=== PATIENT | female | born 1995 ===

== ENCOUNTER 2017-05-17 00:31 | Emergency (ER) | payer MEDICAID ==
[2017-05-17 00:41] VITALS: BP 134/91
[2017-05-17 04:15] LABS: Bilirubin,Urine NEG (Negative); Blood,Urine NEG (Negative); Ketones,Urine NEG (Negative); Leukocyte Esterase,Urine NEG (Negative); Mucus,Urine FEW /HPF; Nitrite,Urine NEG (Negative); Protein,Urine <15 mg/dL mg/dL (Negative); Urobilinogen,Urine < 2.0 mg/dL (<2.0)
--- NOTE | 2017-05-17 05:54 | Emergency Department Report ---
ED Female HPI - General Chief complaint: Urogenital-Female Stated complaint: STD Time Seen by Provider: 05/17/17 05:27 Source: patient Mode of arrival: Ambulatory Limitations: No Limitations - History of Present Illness Initial comments: 21-year-old female past medical history none presents with complaint of white thick vaginal discharge and itching. Denies fevers chills or abdominal pain. Denies increased urinary frequency or dysuria. Last menstrual period 04/16/17. Denies any hematuria. Awake alert and oriented 3. Currently sexually active. Concerned she may have been exposed to chlamydia or gonorrhea. Complaining of some vaginal itching MD Complaint: vaginal discharge Onset/Timin -: week(s) Location: labia Quality: burning Consistency: constant Improves with: none Are you Now?: No Associated Symptoms: vaginal discharge - Related Data Sexually active: Yes Previous Rx's Medication Instructions Recorded Last Taken Type Ibuprofen [Motrin 800 MG tab] 800 mg PO Q8HR PRN #20 tablet 02/03/16 Unknown Rx traMADol [Ultram 50 MG tab] 50 mg PO Q6HR PRN #10 tablet 02/03/16 Unknown Rx Fluconazole [Diflucan TAB] 150 mg PO ONCE #1 tablet 05/17/17 Unknown Rx metroNIDAZOLE [Metronidazole] 500 mg PO BID #14 tablet 05/17/17 Unknown Rx Allergies Allergy/AdvReac Type Severity Reaction Status Date / Time No Known Allergies Allergy Verified 02/03/16 08:12 ED Review of Systems ROS: Stated complaint: STD Other details as noted in HPI Constitutional: denies: chills, fever Eyes: denies: eye pain, eye discharge, vision change ENT: denies: ear pain, throat pain Respiratory: denies: cough, shortness of breath, wheezing Cardiovascular: denies: chest pain, palpitations Endocrine: no symptoms reported Gastrointestinal: denies: abdominal pain, nausea, diarrhea Genitourinary: other (vaginal itching). denies: urgency, dysuria, discharge Musculoskeletal: denies: back pain, joint swelling, arthralgia Skin: denies: rash, lesions Neurological: denies: headache, weakness, paresthesias Psychiatric: denies: anxiety, depression Hematological/Lymphatic: denies: easy bleeding, easy bruising ED Past Medical Hx - Past Medical History Previous Medical History?: No - Surgical History Past Surgical History?: No - Social History Smoking Status: Never Smoker - Medications Home Medications: Home Medications Medication Instructions Recorded Confirmed Last Taken Type Ibuprofen [Motrin 800 MG tab] 800 mg PO Q8HR PRN #20 tablet 02/03/16 Unknown Rx traMADol [Ultram 50 MG tab] 50 mg PO Q6HR PRN #10 tablet 02/03/16 Unknown Rx Fluconazole [Diflucan TAB] 150 mg PO ONCE #1 tablet 05/17/17 Unknown Rx metroNIDAZOLE [Metronidazole] 500 mg PO BID #14 tablet 05/17/17 Unknown Rx ED Physical Exam - General Limitations: No Limitations General appearance: alert, in no apparent distress - Head Head exam: Present: atraumatic, normocephalic - Eye Eye exam: Present: normal appearance, PERRL, EOMI - ENT ENT exam: Present: mucous membranes moist - Neck Neck exam: Present: normal inspection - Respiratory Respiratory exam: Present: normal lung sounds bilaterally. Absent: respiratory distress - Cardiovascular Cardiovascular Exam: Present: regular rate, normal rhythm. Absent: systolic murmur, diastolic murmur, rubs, gallop - GI/Abdominal GI/Abdominal exam: Present: soft, normal bowel sounds - External exam: Present: normal external exam Speculum exam: Present: vaginal discharge (thick white vaginal discharge) Bi-manual exam: Present: normal bi-manual exam - Extremities Exam Extremities exam: Present: normal inspection - Back Exam Back exam: Present: normal inspection - Neurological Exam Neurological exam: Present: alert, oriented X3, CN II-XII intact, normal gait - Psychiatric Psychiatric exam: Present: normal affect, normal mood - Skin Skin exam: Present: warm, dry, intact, normal color. Absent: rash ED Course Vital Signs 05/17/17 05/17/17 00:34 02:24 Temperature 98.2 F 98.2 F Pulse Rate 78 77 Respiratory 16 16 Rate Blood Pressure 134/91 134/91 O2 Sat by Pulse 99 99 Oximetry ED Medical Decision Making - Medical Decision Making A/P: Possible exposure to STD, vaginitis 1-empiric treatment with azithromycin and ceftriaxone for possible cervicitis/GC , culture sent 2-empiric treatment with metronidazole 3-follow-up with [facility] Critical care attestation.: If time is entered above; I have spent that time in minutes in the direct care of this critically ill patient, excluding procedure time. ED Disposition Clinical Impression: Concern about STD in female without diagnosis Vaginitis Qualifiers: Chronicity: acute Qualified Code(s): N76.0 - Acute vaginitis Disposition: TO HOME OR SELFCARE Is pt being admited?: No Does the pt Need Aspirin: No Condition: Stable Instructions: Sexually Transmitted Diseases (ED), Vaginitis (ED), Bacterial Vaginosis (ED) Prescriptions: Fluconazole [Diflucan TAB] 150 mg PO ONCE #1 tablet metroNIDAZOLE [Metronidazole] 500 mg PO BID #14 tablet Referrals: [facility] [Provider Group] - 3-5 Days [facility] [Provider Group] - 3-5 Days Forms: Work/School Release Form(ED) Time of Disposition: 06:01
[2017-05-17] MEDS ORDERED: ZITHROMAX PO ONE (06:04)
[2017-05-17] MEDS ORDERED: XYLOCAINE 1% MPF 5 mL INFILTRATI ONE (06:05)
[2017-05-17] MEDS ORDERED: ROCEPHIN IM ONE (06:05)
[2017-05-17] MEDS ORDERED: ZOFRAN ODT PO ONE (06:55)
[2017-05-17] MEDS ORDERED: ZOFRAN ODT ONE (06:57)
== END 2017-05-17 06:56 | disposition home or self-care (01) ==
LOC: ED 00:31
DX: N76.0 Acute vaginitis (principal)
CPT/HCPCS: 81001; 81025; 87210; 87591; 96372; 99284; J0696; Q0162

== ENCOUNTER 2017-09-24 00:03 | Emergency (ER) | payer MEDICAID ==
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
[2017-09-24 02:18] LABS: Basophils # (Auto) 0.1 K/mm3 (0.0-0.1); Basophils % (Auto) 0.8 % (0.0-1.8); Eosinophils # (Auto) 0.1 K/mm3 (0.0-0.4); Eosinophils % (Auto) 0.7 % (0.0-4.3); Hemoglobin 11.4 gm/dl (10.1-14.3); Lymphocytes # (Auto) 3.2 K/mm3 (1.2-5.4); Lymphocytes % (Auto) 29.3 % (13.4-35.0); Mean Corpuscular HGB Conc 33 % (30-34); Mean Corpuscular Volume 75 fl (79-97); Monocytes # (Auto) 0.7 K/mm3 (0.0-0.8); Monocytes % (Auto) 6.3 % (0.0-7.3); Platelet Count 206 K/mm3 (140-440); Red Blood Count 4.64 M/mm3 (3.65-5.03); Red Cell Distribution Width 18.3 % (13.2-15.2)
[2017-09-24 02:22] LABS: Mean Corpuscular Hemoglobin 25 pg (28-32)
[2017-09-24 02:35] LABS: Bilirubin,Urine NEG (Negative); Blood,Urine NEG (Negative); Color,Urine Amber (Yellow); Mucus,Urine 3+ /HPF
[2017-09-24 02:42] LABS: Alanine Aminotransferase 11 units/L (7-56); Albumin 4.6 g/dL (3.9-5); BUN/Creatinine Ratio 13; Blood Urea Nitrogen 9 mg/dL (7-17); Calcium 9.1 mg/dL (8.4-10.2); Hemolysis Index 1
[2017-09-24 03:24] LABS: Amphetamine Screen,Urine PRESUMPTIVE POSITIVE; Benzodiazepines Screen,Urine PRESUMPTIVE POSITIVE; Cocaine Screen,Urine PRESUMPTIVE POSITIVE; Methadone Screen,Urine PRESUMPTIVE NEGATIVE; Opiate Screen,Urine PRESUMPTIVE NEGATIVE
[2017-09-24 03:59] LABS: Cannabinoid Screen,Urine PRESUMPTIVE POSITIVE
--- NOTE | 2017-09-24 04:05 | Cat Scan Report ---
FINAL REPORT EXAM: CT Head w/o Contrast CLINICAL INDICATIONS: AMS FINDINGS: Unenhanced CT of the brain was performed and demonstrates no acute intracranial hemorrhage, extra-axial fluid collection, midline shift or mass effect. The ventricles and basal cisterns are not effaced. No suspect focal brain lesion is identified. The mastoid air cells and middle ears appear clear. There is no evidence of acute sinusitis. IMPRESSION: NO ACUTE INTRACRANIAL HEMORRHAGE
--- NOTE | 2017-09-24 10:42 | Emergency Department Report ---
Blank Doc - Documentation Documentation: Patient is 21 years old female signed out to me by my colleague Dr. Taylor, patient is alert and oriented 3 that she is still combative with some underlying anxiety. We discussed her case with her mother she is told us that she has been thinking about killing herself. Patient is put on 1013. Mental health travel attendants at bedside for placement.
--- NOTE | 2017-09-25 14:57 | Consultation ---
History of Present Illness - Reason for Consult Consult date: 09/25/17 Reason for consult: Mental Health Evaluation Requesting physician: JENNIFER ERICKSON - Chief Complaint Chief complaint: "I am ready to go" - History of Present Psychiatric Illness 21-year-old female with presenting to the hospital with AVH's and combative behavior. Today the patient is calm and cooperative during the assessment. She stated that she was getting "high" on drugs prior to her admission to the hospital. She stated that she remember smoking marijuana and possibly doing other drugs for a day. She denies having a mental health dx when asked. She stated, "I am good." She was lucid during the interview and not disorganized. She denies SI/HI's and AVH's. She denies erratic sleep and a poor appetite. She denies alcohol consumption (etoh). The patient stated that she buys benzos on the "streets." Medications and Allergies Allergies Allergy/AdvReac Type Severity Reaction Status Date / Time No Known Allergies Allergy Verified 02/03/16 08:12 Home Medications Medication Instructions Recorded Confirmed Last Taken Type Ibuprofen [Motrin 800 MG tab] 800 mg PO Q8HR PRN #20 tablet 02/03/16 Unknown Rx traMADol [Ultram 50 MG tab] 50 mg PO Q6HR PRN #10 tablet 02/03/16 Unknown Rx Fluconazole [Diflucan TAB] 150 mg PO ONCE #1 tablet 05/17/17 Unknown Rx metroNIDAZOLE [Metronidazole] 500 mg PO BID #14 tablet 05/17/17 Unknown Rx Past psychiatric history - Past Medical History Past Medical History: No medical history Past Surgical History: No surgical history - past Psychiatric treatment and history psychiatric treatment history: Denies a psy hx and a fam psy hx. - Social History Social history: lives with family Mental Status Exam - Vital signs Last Vital Signs Temp 98.0 F 09/25/17 09:05 Pulse 64 09/25/17 09:05 Resp 18 09/25/17 09:05 BP 102/63 09/25/17 09:05 Pulse Ox 100 09/25/17 09:05 - Exam Narrative exam: MSE: Appearance: calm, cooperative Behavior: regular eye contact Speech: regular rate with tone Mood: "okay" Affect: congruent to mood Thought Process: circumstantial Thought Content: denies SI/HI's and AVH's Motor Activity: ambulatory Cognition: A/O x 3 Insight: fair Judgment: fair Results Result Diagrams: 09/24/17 02:04 09/24/17 02:04 All other labs normal. Assessment and Plan Assessment and plan: Impression: Unspecified Psychosis on admission. Cannabis Use DO. Substance Use DO (amphetamines, cocaine). Today the patient is calm and cooperative during the assessment. The patient is positive for benzos. DDx: R/O Substance Induced Psychosis Recommendation/Plan: Continue 1013 and gather collateral information to help determine proper dispo. Called the patient's grandmother (Keri) at to get collateral, no answer. Will reassess and attempt to gather collateral information in 24 hours.
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
--- NOTE | 2017-09-27 10:39 | Progress Note ---
Subjective - Reason for Consult Consult date: 09/27/17 Reason for consult: Psychiatry Follow-up - Chief Complaint Chief complaint: "No one understand" Patient is a 21-year-old female who presents to the hospital with AVH's and combative behavior. Today the patient is calm and cooperative during the assessment. She stated that she has "spirits and demons" inside of her. She stated that these "things" has been inside of her since last Sunday. She stated that no one understand what she is going through. Per collateral information from Halie Ryan her grandmother at [phone] she stated that the patient arrived at her home several days ago presenting with bizarre behavior. She stated that there's a fam hx of Bipolar DO. The patient denies SI/HI's and AVH' s. The patient agrees to take medication. Mental Status Exam - Vital signs Last Vital Signs Temp 97.9 F 09/26/17 16:06 Pulse 71 09/26/17 16:06 Resp 18 09/26/17 16:06 BP 105/68 09/26/17 16:06 Pulse Ox 99 09/26/17 16:06 - Exam Narrative exam: MSE: Appearance: calm, cooperative Behavior: regular eye contact Speech: regular rate with tone Mood: "okay" Affect: congruent to mood Thought Process: circumstantial Thought Content: denies SI/HI's and AVH's, delusional, hyper muslim Motor Activity: ambulatory Cognition: A/O x 3 Insight: variable Judgment: fair Assessment and Plan Impression: Unspecified Psychosis. Cannabis Use DO. Substance Use DO ( amphetamines, cocaine). Today the patient is calm and cooperative , but delusional during the assessment. The patient is positive for benzos. DDx: R/O Schizophrenia, R/O Bipolar DO, R/O Substance Induced Psychosis Recommendation/Plan: Continue 1013 with placement to inpatient psy services. Start Geodon 20 mg PO BID for psychosis. Discussed possible metabolic side effects of Geodon with patient.
[2017-09-27] MEDS: GEODON PO SCH ×2 (13:25→22:54)
[2017-09-27] MEDS ORDERED: TYLENOL ONE (22:47)
[2017-09-27] MEDS ORDERED: TYLENOL PO ONE (22:53)
[2017-09-28] MEDS: GEODON PO SCH ×2 (10:49→22:15)
--- NOTE | 2017-09-28 12:44 | Progress Note ---
Subjective - Reason for Consult Consult date: 09/28/17 Reason for consult: Psychiatry Follow-up - Chief Complaint Chief complaint: "Hello there" Patient is a 21-year-old female who presents to the hospital with AVH's and combative behavior. Today the patient is calm and cooperative during the assessment. She stated that the demons are not inside of her anymore. She stated , "I hope they don't return." She was asked to talk about these demons, but she would not elaborate. She denies SI/HI's and AVH's. She denies any side effects of her medication. Mental Status Exam - Vital signs Last Vital Signs Temp 97.8 F 09/28/17 10:37 Pulse 72 09/28/17 10:37 Resp 18 09/28/17 10:37 BP 91/43 09/28/17 10:37 Pulse Ox 99 09/28/17 10:37 - Exam Narrative exam: MSE: Appearance: calm, cooperative Behavior: regular eye contact Speech: regular rate with tone Mood: "well" Affect: congruent to mood Thought Process: circumstantial Thought Content: denies SI/HI's and AVH's, delusional Motor Activity: ambulatory Cognition: A/O x 3 Insight: variable Judgment: fair Assessment and Plan Impression: Unspecified Psychosis. Cannabis Use DO. Substance Use DO ( amphetamines, cocaine). Today the patient is calm and cooperative during the assessment. The patient is positive for benzos. DDx: R/O Schizophrenia, R/O Bipolar DO, R/O Substance Induced Psychosis Recommendation/Plan: Continue 1013 with placement to inpatient psy services. Continue Geodon 20 mg PO BID for psychosis. Discussed possible metabolic side effects of Geodon with patient.
[2017-09-28] MEDS ORDERED: GEODON ONE (20:34)
[2017-09-29] MEDS: GEODON PO SCH (10:54)
[2017-09-29 15:08] VITALS: BP 102/61
== END 2017-09-29 16:36 | disposition other institution (70) ==
LOC: ED 00:03 → EEVIPCON 00:03 → ED 09-29 16:36
DX: R41.82 Altered mental status, unspecified (principal); F32.9 Major depressive disorder, single episode, unspecified; F12.10 Cannabis abuse, uncomplicated; F14.10 Cocaine abuse, uncomplicated; F13.10 Sedative, hypnotic or anxiolytic abuse, uncomplicated; F15.10 Other stimulant abuse, uncomplicated; Z79.899 Other long term (current) drug therapy
CPT/HCPCS: 36415; 70450; 80053; 80307; 81001; 84443; 84703; 85025; 99285; G0480; 80320

== ENCOUNTER 2020-03-22 21:46 | Emergency (ER) | payer MEDICAID ==
[2020-03-22 22:25] LABS: Basophils # (Auto) 0.1 K/mm3 (0.0-0.1); Basophils % (Auto) 0.6 % (0.0-1.8); Eosinophils # (Auto) 0.1 K/mm3 (0.0-0.4); Eosinophils % (Auto) 0.5 % (0.0-4.3); Hematocrit 34.4 % (30.3-42.9); Hemoglobin 11.8 gm/dl (10.1-14.3); Lymphocytes # (Auto) 4.1 K/mm3 (1.2-5.4); Mean Corpuscular HGB Conc 34 % (30-34); Mean Corpuscular Volume 77 fl (79-97); Monocytes # (Auto) 0.7 K/mm3 (0.0-0.8); Monocytes % (Auto) 6.5 % (0.0-7.3); Platelet Count 311 K/mm3 (140-440); Red Blood Count 4.49 M/mm3 (3.65-5.03); Red Cell Distribution Width 14.5 % (13.2-15.2)
[2020-03-22 22:32] LABS: BUN/Creatinine Ratio 9; Blood Urea Nitrogen 6 mg/dL (7-17); Hemolysis Index 4
[2020-03-22] MEDS ORDERED: POTASSIUM CHLORIDE ER 20 MEQ TAB PO ONE (23:21)
--- NOTE | 2020-03-22 23:22 | Emergency Department Report ---
HPI - [facility] HPI: Room 13 The patient is a 24-year-old female present with a chief complaint of bizarre behavior. Patient was reportedly sent from home after being found walking around continuously singing. When asked what made her come to the emergency department patient states "Cayden." When asked why Asaf want her to come to the emergency department the patient states she does not know. When asked how she is feeling the patient replies "Cayden." Patient denies suicidal homicidal ideation. Patient denies visual or auditory hallucinations <CAROLYN MICHEL - Last Filed: 03/22/20 23:19> <JENNIFER ERICKSON - Last Filed: 03/24/20 08:36> <SHANTA ORTIZ - Last Filed: 03/26/20 13:40> - General Chief Complaint: Psych Time Seen by Provider: 03/22/20 23:03 ED Past Medical Hx - Past Medical History Hx Psychiatric Treatment: (Bipolar, Schziophrenia) - Surgical History Past Surgical History?: No - Family History Family history: no significant - Social History Smoking Status: Never Smoker Substance Use Type: None (Denies illicit drug use) <CAROLYN MICHEL - Last Filed: 03/22/20 23:19> <JENNIFER ERICKSON - Last Filed: 03/24/20 08:36> <SHANTA ORTIZ - Last Filed: 03/26/20 13:40> - Medications Home Medications: Home Medications Medication Instructions Recorded Confirmed Last Taken Type OLANZapine [Zyprexa] 15 mg PO QPM #30 tab 03/26/20 Unknown Rx Valproic Acid [Depakene] 500 mg PO BID #60 capsule 03/26/20 Unknown Rx ED Review of Systems ROS: Stated complaint: MH EVALUATION Other details as noted in HPI Constitutional: no symptoms reported Respiratory: no symptoms reported Endocrine: no symptoms reported Psychiatric: denies: auditory hallucinations, visual hallucinations, homicidal thoughts, suicidal thoughts <CAROLYN MICHEL - Last Filed: 03/22/20 23:19> ROS: Stated complaint: MH EVALUATION Other details as noted in HPI <JENNIFER ERICKSON - Last Filed: 03/24/20 08:36> ROS: Stated complaint: MH EVALUATION Other details as noted in HPI <SHANTA ORTIZ - Last Filed: 03/26/20 13:40> Physical Exam - Physical Exam Vital Signs: Vital Signs 03/22/20 21:49 Temperature 98 F Pulse Rate 108 H Respiratory 20 Rate Blood Pressure 135/73 O2 Sat by Pulse 100 Oximetry Physical Exam: GENERAL: The patient is well-developed well-nourished female standing in room singing not appearing to be in acute distress. [] HEENT: Normocephalic. Atraumatic. Extraocular motions are intact. Patient has moist mucous membranes. NECK: Supple. Trachea midline CHEST/LUNGS: Clear to auscultation. There is no respiratory distress noted. HEART/CARDIOVASCULAR: Regular. There is tachycardia. There is no gallop rub or murmur. ABDOMEN: Abdomen is soft, nontender. Patient has normal bowel sounds. There is no abdominal distention. SKIN: There is no rash. There is no edema. There is no diaphoresis. NEURO: The patient is awake, alert, and oriented. The patient is cooperative. The patient has no focal neurologic deficits. The patient has normal speech MUSCULOSKELETAL: There is no evidence of acute injury. <CAROLYN MICHEL - Last Filed: 03/22/20 23:19> - Physical Exam Vital Signs: Vital Signs 03/22/20 03/23/20 03/23/20 21:49 02:07 07:41 Temperature 98 F 98.0 F 97.7 F Pulse Rate 108 H 77 93 H Respiratory 20 16 20 Rate Blood Pressure 135/73 Blood Pressure 109/80 148/83 [Left] O2 Sat by Pulse 100 97 99 Oximetry 03/23/20 03/23/20 03/23/20 09:04 14:36 19:55 Temperature 97.8 F 97.9 F Pulse Rate 68 89 Respiratory 18 18 16 Rate Blood Pressure Blood Pressure 99/51 114/75 [Left] O2 Sat by Pulse 99 99 98 Oximetry 03/24/20 03/24/20 02:11 08:00 Temperature 97.7 F Pulse Rate 88 Respiratory 18 18 Rate Blood Pressure Blood Pressure 96/51 [Left] O2 Sat by Pulse 97 97 Oximetry <JENNIFER ERICKSON - Last Filed: 03/24/20 08:36> - Physical Exam Vital Signs: Vital Signs 03/22/20 03/22/20 03/23/20 21:49 21:53 02:07 Temperature 98 F 98.0 F 98.0 F Pulse Rate 108 H 86 77 Respiratory 20 20 16 Rate Blood Pressure 135/73 135/73 Blood Pressure 109/80 [Left] O2 Sat by Pulse 100 96 97 Oximetry 03/23/20 03/23/20 03/23/20 07:41 09:04 14:36 Temperature 97.7 F 97.8 F Pulse Rate 93 H 68 Respiratory 20 18 18 Rate Blood Pressure Blood Pressure 148/83 99/51 [Left] O2 Sat by Pulse 99 99 99 Oximetry 03/23/20 03/24/20 03/24/20 19:55 02:11 08:00 Temperature 97.9 F 97.7 F Pulse Rate 89 88 Respiratory 16 18 18 Rate Blood Pressure Blood Pressure 114/75 96/51 [Left] O2 Sat by Pulse 98 97 97 Oximetry 03/24/20 03/24/20 03/25/20 08:46 19:13 04:30 Temperature 97.8 F 98.3 F 97.7 F Pulse Rate 105 H 82 93 H Respiratory 18 16 18 Rate Blood Pressure 116/77 116/83 Blood Pressure 122/80 [Left] O2 Sat by Pulse 99 99 97 Oximetry 03/25/20 03/25/20 03/26/20 08:02 19:28 01:43 Temperature 97.7 F 97.8 F 98.0 F Pulse Rate 98 H 115 H Respiratory 20 18 18 Rate Blood Pressure 109/80 106/62 Blood Pressure 114/62 [Left] O2 Sat by Pulse 99 95 Oximetry 03/26/20 03/26/20 01:48 08:02 Temperature 97.9 F Pulse Rate 92 H 95 H Respiratory 16 Rate Blood Pressure 110/75 Blood Pressure [Left] O2 Sat by Pulse 99 98 Oximetry <SHANTA ORTIZ - Last Filed: 03/26/20 13:40> ED Course Vital Signs 03/22/20 21:49 Temperature 98 F Pulse Rate 108 H Respiratory 20 Rate Blood Pressure 135/73 O2 Sat by Pulse 100 Oximetry <CAROLYN MICHEL - Last Filed: 03/22/20 23:19> Vital Signs 03/22/20 03/23/20 03/23/20 21:49 02:07 07:41 Temperature 98 F 98.0 F 97.7 F Pulse Rate 108 H 77 93 H Respiratory 20 16 20 Rate Blood Pressure 135/73 Blood Pressure 109/80 148/83 [Left] O2 Sat by Pulse 100 97 99 Oximetry 03/23/20 03/23/20 03/23/20 09:04 14:36 19:55 Temperature 97.8 F 97.9 F Pulse Rate 68 89 Respiratory 18 18 16 Rate Blood Pressure Blood Pressure 99/51 114/75 [Left] O2 Sat by Pulse 99 99 98 Oximetry 03/24/20 03/24/20 02:11 08:00 Temperature 97.7 F Pulse Rate 88 Respiratory 18 18 Rate Blood Pressure Blood Pressure 96/51 [Left] O2 Sat by Pulse 97 97 Oximetry - Reevaluation(s) Reevaluation #1: 03/24/20 08:36 Patient became agitated. Screaming out "Cayden". Due to uncontrollable behavior, chemical restraint with IM Geodon was administered. <JENNIFER ERICKSON - Last Filed: 03/24/20 08:36> Vital Signs 03/22/20 03/22/20 03/23/20 21:49 21:53 02:07 Temperature 98 F 98.0 F 98.0 F Pulse Rate 108 H 86 77 Respiratory 20 20 16 Rate Blood Pressure 135/73 135/73 Blood Pressure 109/80 [Left] O2 Sat by Pulse 100 96 97 Oximetry 03/23/20 03/23/20 03/23/20 07:41 09:04 14:36 Temperature 97.7 F 97.8 F Pulse Rate 93 H 68 Respiratory 20 18 18 Rate Blood Pressure Blood Pressure 148/83 99/51 [Left] O2 Sat by Pulse 99 99 99 Oximetry 03/23/20 03/24/20 03/24/20 19:55 02:11 08:00 Temperature 97.9 F 97.7 F Pulse Rate 89 88 Respiratory 16 18 18 Rate Blood Pressure Blood Pressure 114/75 96/51 [Left] O2 Sat by Pulse 98 97 97 Oximetry 03/24/20 03/24/20 03/25/20 08:46 19:13 04:30 Temperature 97.8 F 98.3 F 97.7 F Pulse Rate 105 H 82 93 H Respiratory 18 16 18 Rate Blood Pressure 116/77 116/83 Blood Pressure 122/80 [Left] O2 Sat by Pulse 99 99 97 Oximetry 03/25/20 03/25/20 03/26/20 08:02 19:28 01:43 Temperature 97.7 F 97.8 F 98.0 F Pulse Rate 98 H 115 H Respiratory 20 18 18 Rate Blood Pressure 109/80 106/62 Blood Pressure 114/62 [Left] O2 Sat by Pulse 99 95 Oximetry 03/26/20 03/26/20 01:48 08:02 Temperature 97.9 F Pulse Rate 92 H 95 H Respiratory 16 Rate Blood Pressure 110/75 Blood Pressure [Left] O2 Sat by Pulse 99 98 Oximetry - Reevaluation(s) Reevaluation #2: 03/26/20 13:39 Patient seen and evaluated by Psychiatry. Symptoms have improved. Patient is stable and 1013 has been rescinded. She will be discharged at this time with outpatient follow-up. <SHANTA ORTIZ - Last Filed: 03/26/20 13:40> ED Medical Decision Making - Lab Data Result diagrams: 03/22/20 21:56 03/22/20 21:56 - Differential Diagnosis Bipolar disorder <CAROLYN MICHEL - Last Filed: 03/22/20 23:19> - Lab Data Result diagrams: 03/22/20 21:56 03/22/20 21:56 <JENNIFER ERICKSON - Last Filed: 03/24/20 08:36> - Lab Data Result diagrams: 03/22/20 21:56 03/26/20 05:58 <SHANTA ORTIZ - Last Filed: 03/26/20 13:40> Critical care attestation.: If time is entered above; I have spent that time in minutes in the direct care of this critically ill patient, excluding procedure time. <CAROLYN MICHEL - Last Filed: 03/22/20 23:19> Critical care attestation.: If time is entered above; I have spent that time in minutes in the direct care of this critically ill patient, excluding procedure time. <JENNIFER ERICKSON - Last Filed: 03/24/20 08:36> Critical care attestation.: If time is entered above; I have spent that time in minutes in the direct care of this critically ill patient, excluding procedure time. <SHANTA ORTIZ - Last Filed: 03/26/20 13:40> ED Disposition <CAROLYN MICHEL - Last Filed: 03/22/20 23:19> <JENNIFER ERICKSON - Last Filed: 03/24/20 08:36> Is pt being admited?: No <SHANTA ORTIZ - Last Filed: 03/26/20 13:40> Clinical Impression: Schizoaffective disorder, Substance-induced psychotic disorder Disposition: DC-01 TO HOME OR SELFCARE Condition: Stable Instructions: Cannabis Abuse (ED), Schizoaffective Disorder (ED) Additional Instructions: OUTPATIENT MENTAL HEALTH RESOURCES [facility], [facility] Hal Holt MD: [address] [facility] [address] [place] [address] [place] [address] [facility]: [employer] [address] [place] [address] [place] [address] [phone] [facility]: [facility]: [address] [facility] [address] [facility] [place] [address] [facility] [address] [facility]: Danny Hewitt MD: [address] [facility] [address] [facility] [id number] [facility]: [address] [place], [place] [id number] [phone] [place] CRISIS AND ACCESS LINE: Prescriptions: Valproic Acid [Depakene] 500 mg PO BID #60 capsule OLANZapine [Zyprexa] 15 mg PO QPM #30 tab Referrals: PRIMARY CARE, [Primary Care Provider] - 3-5 Days
[2020-03-22 23:36] LABS: Bacteria,Urine 2+ /HPF (Negative); Bilirubin,Urine NEG (Negative); Blood,Urine NEG (Negative); Color,Urine Yellow (Yellow); Mucus,Urine 1+ /HPF
[2020-03-22 23:44] LABS: Amphetamine Screen,Urine PRESUMPTIVE NEGATIVE; Benzodiazepines Screen,Urine PRESUMPTIVE NEGATIVE; Cannabinoid Screen,Urine PRESUMPTIVE POSITIVE; Cocaine Screen,Urine PRESUMPTIVE NEGATIVE; Methadone Screen,Urine PRESUMPTIVE NEGATIVE; Opiate Screen,Urine PRESUMPTIVE NEGATIVE
[2020-03-23] MEDS ORDERED: ZIPRASIDONE 20 MG CAP ONE (16:27)
[2020-03-23] MEDS ORDERED: ZIPRASIDONE 20 MG CAP PO ONE (16:28)
[2020-03-24] MEDS ORDERED: ZIPRASIDONE MESYLATE 20 MG VIAL IM ONE ×4 (08:35→22:45)
[2020-03-24] MEDS ORDERED: LORazepam 2 MG/ML VIAL ONE (08:59)
[2020-03-24] MEDS ORDERED: LORazepam 2 MG/ML VIAL IM ONE (09:05)
--- NOTE | 2020-03-24 10:59 | Consultation ---
History of Present Illness - Reason for Consult Consult date: 03/24/20 Reason for consult: MHE Requesting physician: CAROLYN MICHEL - History of Present Psychiatric Illness Per ED Provider: The patient is a 24-year-old female present with a chief complaint of bizarre behavior. Patient was reportedly sent from home after being found walking around continuously singing. When asked what made her come to the emergency department patient states "Cayden." When asked why Ron want her to come to the emergency department the patient states she does not know. When asked how she is feeling the patient replies "Cayden." Patient denies suicidal homicidal ideation. Patient denies visual or auditory hallucinations Per MHA: Pt is a 24 y/o AA female who presents to the ED for a MHE with a chief complaint of bizarre behavior. Per EMS report, pt was found upright jumping around in the basement signing to [employer]. According to pt, she was transported to the hospital for praising Cayden. During current ax, pt. presents as being hyper synagogue, delusional thinking, and paranoid. Pt is fixated on GOD and the Devil and reports hearing and seeing spirits that talk to me in my head. Pt. reports that the Devil putting me down so I wont praise Cayden. Say negative things like walk around naked. Talk about people and be mean. He dont want me focus on GOD. Pt is preoccupied that the spirits are convicting me. Pt reports a decrease in sleep and change in appetite within the last week. Pt. reports fasting and only eating vegetables for seven days or whenever GOD tells me to. Pt. denies SI, HI, or past suicide attempts. Pt hx consists of Schizophrenia and Bipolar Disorder. Pt denies being compliant with medications within the last week. Unwilling to elaborate on reason for not taking medications. Pt is seen by Dr. Mcconnell every 3 months. Located in [place], [place]. Pt has had several inpatient hospitalizations as a result of devil trying to throw my body around and take over my body. Flipping my body all over the place and I couldnt control it. Admits to alcohol use approximately 2 weeks ago but denies abusing alcohol. Reports hx of abusing Ecstasy, Xanax and cocaine. Admits the last time using was 2 years ago. Pt. tested positive for THC. PSYCH HPI Patient is a 24 ear old Female with past psychiatric history of Bipolar and Schziophrenia based on history and followed outpt by psychiatrist who presented to ED for bizarre behavior, she was seen by her room entrance screaming, shouting and repetitive saying Cayden and non directable. Patient cannot be assessed at this time due to current mental status and behavior. REVIEW OF SYSTEMS ROS cannot be reliably obtained from the patient due to her confusion MENTAL STATUS EXAMINATION General Appearance and Behavior: Age appropriate, good hygiene, wearing appropriate clothes,, poor eye contact, cooperative/uncooperative with questioning. Cooperation: Withdrawn Psychomotor Behavior: Psychomotor agitation Mood: na Affect and affective range: d euphoric, Thought Process: Pressured, Thought Content: , Obsessions, Speech: pressured, loud volume Intellectual Functioning: fair Suicidal Ideation: na Homicidal Ideation: na Impulse Control: Impaired Insight and Judgment: Impaired Memory: unknow Attention: Divided attention impaired Orientation: Alert, Assessment and Plan - Psychiatric problem (1) Substance-induced psychotic disorder Current Visit: Yes Status: Acute (2) Schizoaffective disorder Current Visit: Yes Status: Acute Treatment Plan Concern for substance induced psychosis, or exarcebated tee due to untreated schizoaffective MEDICATIONS: Risks, benefits and alternatives of medications discussed with the patient, questions answered and consent obtained from patient. PSYCHOTHERAPY: Supportive psychotherapy provided MEDICAL: Per primary team DELIRIUM PRECAUTIONS: Please re-orient patient frequently, keep lights on during the day, and minimize benzodiazepines and opiates as these medications could worsen patient's confusion. 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 Please contact with any questions and/or concerns. Medications and Allergies Allergies Allergy/AdvReac Type Severity Reaction Status Date / Time No Known Allergies Allergy Verified 03/24/20 09:57 Home Medications Medication Instructions Recorded Confirmed Last Taken Type OLANZapine [Zyprexa] 15 mg PO QPM 03/23/20 03/23/20 Unknown History buPROPion XL [Wellbutrin Xl] 300 mg PO DAILY 03/23/20 03/23/20 Unknown History Mental Status Exam - Vital signs Last Vital Signs Temp 97.8 F 03/24/20 08:46 Pulse 105 H 03/24/20 08:46 Resp 18 03/24/20 08:46 BP 122/80 03/24/20 08:46 Pulse Ox 99 03/24/20 08:46 Results Result Diagrams: 03/22/20 21:56 03/22/20 21:56 All other labs normal. Assessment and Plan - Psychiatric problem (1) Substance-induced psychotic disorder Current Visit: Yes Status: Acute (2) Schizoaffective disorder Current Visit: Yes Status: Acute
[2020-03-24] MEDS ORDERED: POTASSIUM CHLORIDE ER 20 MEQ TAB PO ONE (11:19)
[2020-03-24] MEDS ORDERED: LITHIUM CARBONATE 300 MG CAP PO SCH (12:00)
[2020-03-24] MEDS: LITHIUM CARBONATE 150 MG CAP PO SCH ×2 (12:12→21:44)
[2020-03-24] MEDS: LORazepam 2 MG/ML VIAL IM PRN (22:13)
[2020-03-24] MEDS: HALOPERIDOL LACTATE 5 MG/1 ML INJ IM PRN (22:16)
[2020-03-24] MEDS ORDERED: WATER FOR INJ Sterile (PF) 10 ML ONE (22:45)
--- NOTE | 2020-03-25 10:38 | Progress Note ---
Subjective - Reason for Consult Consult date: 03/25/20 Reason for consult: MHE Requesting physician: CAROLYN MICHEL - Chief Complaint Chief complaint: PSYCH HPI Patient in room, more cooperative, not screaming or shouting at this moment. Patient reports feeling better than yesterday say she does not remember what had happened to her, endorses living with her grandmother and that she had stopped taking her psychiatric meds 7 days ago because she does not believe they work. Patient seen sometimes singing, labile mood, denies hearing voices, says she would like to know if she can go home. MENTAL STATUS EXAMINATION General Appearance and Behavior: Age appropriate, good hygiene, wearing appropriate clothes,, poor eye contact, cooperative/uncooperative with questioning. Cooperation: Withdrawn Psychomotor Behavior: Psychomotor agitation Mood: na Affect and affective range: labile Thought Process: Pressured, Thought Content: , Obsessions, Speech: pressured, loud volume Intellectual Functioning: fair Suicidal Ideation: na Homicidal Ideation: na Impulse Control: Impaired Insight and Judgment: Impaired Memory: unknow Attention: Divided attention impaired Orientation: Alert, Assessment and Plan - Psychiatric problem (1) Substance-induced psychotic disorder Current Visit: Yes Status: Acute (2) Schizoaffective disorder Current Visit: Yes Status: Acute Treatment Plan Concern for substance induced psychosis, or exarcebated tee due to untreated schizoaffective MEDICATIONS: WIll switch from lithium to Valproate Risks, benefits and alternatives of medications discussed with the patient, questions answered and consent obtained from patient. PSYCHOTHERAPY: Supportive psychotherapy provided MEDICAL: Per primary team DELIRIUM PRECAUTIONS: Please re-orient patient frequently, keep lights on during the day, and minimize benzodiazepines and opiates as these medications could worsen patient's confusion. 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 Please contact with any questions and/or concerns. Mental Status Exam - Vital signs Last Vital Signs Temp 97.7 F 03/25/20 08:02 Pulse 98 H 03/25/20 08:02 Resp 20 03/25/20 08:02 BP 114/62 03/25/20 08:02 Pulse Ox 99 03/25/20 08:02 Assessment and Plan - Patient Problems (1) Substance-induced psychotic disorder Current Visit: Yes Status: Acute (2) Schizoaffective disorder Current Visit: Yes Status: Acute
[2020-03-25] MEDS: VALPROIC ACID 250 MG CAP PO SCH ×2 (11:07→21:31)
[2020-03-25] MEDS: LITHIUM CARBONATE 150 MG CAP PO SCH ×2 (11:07→21:30)
[2020-03-25] MEDS: LORazepam 2 MG/ML VIAL IM PRN (11:42)
[2020-03-25] MEDS: HALOPERIDOL LACTATE 5 MG/1 ML INJ IM PRN (11:42)
[2020-03-26 06:34] LABS: Alanine Aminotransferase 10 units/L (7-56); Albumin 4.2 g/dL (3.9-5); BUN/Creatinine Ratio 5; Blood Urea Nitrogen 4 mg/dL (7-17); Calcium 9.7 mg/dL (8.4-10.2); Hemolysis Index 4
[2020-03-26 09:27] VITALS: BP 110/75
[2020-03-26] MEDS: VALPROIC ACID 250 MG CAP PO SCH (11:09)
--- NOTE | 2020-03-26 11:46 | Progress Note ---
Subjective - Reason for Consult Consult date: 03/26/20 Reason for consult: MHE Requesting physician: CAROLYN MICHEL - Chief Complaint Chief complaint: PSYCH HPI Patient in room, more cooperative, self groomed, more insightful than yesterday, no symptoms of response to internal stimuli. Patient reports sleeping well, says she feels good today, denies intrusive/abnormal thought disorder and even provided her grandmothers contact details MENTAL STATUS EXAMINATION General Appearance and Behavior: Age appropriate, good hygiene, wearing appropriate clothes,, poor eye contact, cooperative and polie with questioning. Cooperation: engaged Psychomotor Behavior: Psychomotor normal Mood: better Affect and affective range: congruent with mood Thought Process: Logical Thought Content: within reality Speech:normal rate and volume Intellectual Functioning: improved Suicidal Ideation: denies Homicidal Ideation:denies Impulse Control: unmpaired Insight and Judgment: Improved Memory: normal Attention: normal Orientation: Alert, and oriented Assessment and Plan - Psychiatric problem (1) Substance-induced psychotic disorder Current Visit: Yes Status: Acute (2) Schizoaffective disorder Current Visit: Yes Status: Acute Treatment Plan Spoke with melba, agreed to fiber picker patient MEDICATIONS: discharge with medications Risks, benefits and alternatives of medications discussed with the patient, questions answered and consent obtained from patient. PSYCHOTHERAPY: Supportive psychotherapy provided MEDICAL: Per primary team DELIRIUM PRECAUTIONS: Please re-orient patient frequently, keep lights on during the day, and minimize benzodiazepines and opiates as these medications could worsen patient's confusion. 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 Please contact with any questions and/or concerns. Mental Status Exam - Vital signs Last Vital Signs Temp 97.9 F 03/26/20 08:02 Pulse 95 H 03/26/20 08:02 Resp 16 03/26/20 08:02 BP 110/75 03/26/20 08:02 Pulse Ox 98 03/26/20 08:02 Assessment and Plan - Patient Problems (1) Substance-induced psychotic disorder Status: Acute (2) Schizoaffective disorder Status: Acute
== END 2020-03-26 14:30 | disposition home or self-care (01) ==
LOC: ED 21:46
DX: F25.0 Schizoaffective disorder, bipolar type (principal); F19.959 Other psychoactive substance use, unspecified with psychoactive substance-induced psychotic disorder, unspecified; Z79.899 Other long term (current) drug therapy
CPT/HCPCS: 36415; 80048; 80053; 80307; 81001; 84132; 84703; 85025; 96372; 99284; J1630; J2060; J3486; 80320; G0480

== ENCOUNTER 2021-10-24 11:01 | Emergency (ER) | payer SELFPAY ==
--- NOTE | 2021-10-24 12:26 | Emergency Department Report ---
ED Female HPI - General Chief complaint: Nausea/Vomiting/Diarrhea Stated complaint: POSS YEAST INFECTION/PREG Source: patient Mode of arrival: Ambulatory Limitations: No Limitations - History of Present Illness Initial comments: 25-year-old female presents to the ED complaining of vaginal discharge x3 days. Patient states that she is possibly that she has not had a menstrual cycle x2 months. She states that she was on the Depo-Provera control shot recently stopped taking it and has been having unprotected sex. Patient is here today for test. Patient denies any abdominal pain, vaginal bleeding or dysuria at present time. Patient is alert and oriented x3. No acute distress noted. no ill appearance noted. MD Complaint: vaginal discharge Onset/Timin -: days(s) Radiation: non-radiating Severity scale (0 -10): 0 Improves with: none Worsens with: none - Related Data Previous Rx's Medication Instructions Recorded Last Taken Type OLANZapine [Zyprexa] 15 mg PO QPM #30 tab 03/26/20 Unknown Rx Valproic Acid [Depakene] 500 mg PO BID #60 capsule 03/26/20 Unknown Rx Ondansetron (Nf) [Zofran TAB] 8 mg PO Q8HR PRN 3 Days #12 tablet 10/24/21 Unknown Rx metroNIDAZOLE [Flagyl] 500 mg PO Q12HR 10 Days #20 tab 10/24/21 Unknown Rx Allergies Allergy/AdvReac Type Severity Reaction Status Date / Time No Known Allergies Allergy Verified 03/24/20 09:57 ED Review of Systems ROS: Stated complaint: POSS YEAST INFECTION/PREG Other details as noted in HPI Constitutional: denies: chills, fever Eyes: denies: eye pain, eye discharge, vision change ENT: denies: ear pain, throat pain Respiratory: denies: cough, shortness of breath, wheezing Cardiovascular: denies: chest pain, palpitations Endocrine: no symptoms reported Gastrointestinal: denies: abdominal pain, nausea, diarrhea Genitourinary: discharge. denies: urgency, dysuria Musculoskeletal: denies: back pain, joint swelling, arthralgia Skin: denies: rash, lesions Neurological: denies: headache, weakness, paresthesias Psychiatric: denies: anxiety, depression Hematological/Lymphatic: denies: easy bleeding, easy bruising ED Past Medical Hx - Past Medical History Previous Medical History?: No Hx Psychiatric Treatment: (Bipolar, Schziophrenia) - Surgical History Past Surgical History?: No - Social History Smoking Status: Never Smoker - Medications Home Medications: Home Medications Medication Instructions Recorded Confirmed Last Taken Type OLANZapine [Zyprexa] 15 mg PO QPM #30 tab 03/26/20 Unknown Rx Valproic Acid [Depakene] 500 mg PO BID #60 capsule 03/26/20 Unknown Rx Ondansetron (Nf) [Zofran TAB] 8 mg PO Q8HR PRN 3 Days #12 tablet 10/24/21 Unknown Rx metroNIDAZOLE [Flagyl] 500 mg PO Q12HR 10 Days #20 tab 10/24/21 Unknown Rx ED Physical Exam - General Limitations: No Limitations General appearance: alert, in no apparent distress - Head Head exam: Present: atraumatic, normocephalic - Eye Eye exam: Present: normal appearance - ENT ENT exam: Present: mucous membranes moist - Neck Neck exam: Present: normal inspection - Respiratory Respiratory exam: Present: normal lung sounds bilaterally. Absent: respiratory distress - Cardiovascular Cardiovascular Exam: Present: regular rate, normal rhythm. Absent: systolic murmur, diastolic murmur, rubs, gallop - GI/Abdominal GI/Abdominal exam: Present: soft, normal bowel sounds - External exam: Present: normal external exam. Absent: erythema, swelling Speculum exam: Present: normal speculum exam - Extremities Exam Extremities exam: Present: normal inspection - Back Exam Back exam: Present: normal inspection - Neurological Exam Neurological exam: Present: alert, oriented X3 - Psychiatric Psychiatric exam: Present: normal affect, normal mood - Skin Skin exam: Present: warm, dry, intact, normal color. Absent: rash ED Course Vital Signs 10/24/21 10/24/21 11:19 14:22 Temperature 98.9 F 98.2 F Pulse Rate 74 88 Respiratory 18 Rate Blood Pressure 124/65 Blood Pressure 124/89 [Right] O2 Sat by Pulse 99 Oximetry ED Medical Decision Making - Medical Decision Making 25-year-old female presents to the ED complaining of vaginal discharge x3 days. Patient states that she is possibly that she has not had a menstrual cycle x2 months. She states that she was on the Depo-Provera control shot recently stopped taking it and has been having unprotected sex. Patient is here today for test. Patient denies any abdominal pain, vaginal bleeding or dysuria at present time. Patient is alert and oriented x3. No acute distress noted. no ill appearance noted. Physical examination pelvic examination foul odor noted but no discharge at present time. Wet prep shows greater than 20 clue cells we will treat patient for bacterial vaginosis. Rechecked the patient is resting quietly quietly and comfortable and feeling better. I discussed the results of diagnostic study, my clinical impression and the plan for further treatment with the patient. Patient agrees with plan and discharge at this present time. All question addressed. I have given the patient instruction regarding a diagnosis ,expectation ,follow- up and return precaution. I explained to the patient that emergent condition may arise and to return to the ED for new worsen and any new persisting condition. I have explained the importance of following up with the primary care physician or referral physician listed below has instructed. The patient verbalized understanding of discharge instruction. Abnormal Lab Results 10/24/21 Unknown Urine Color Yellow Urine Turbidity Clear Urine pH 6.0 Ur Specific [place] 1.015 Urine Protein <15 mg/dl Urine Glucose (UA) Neg Urine Ketones Neg Urine Blood Neg Urine Nitrite Neg Urine Bilirubin Neg Urine Urobilinogen < 2.0 Ur Leukocyte Esterase Neg Urine WBC (Auto) < 1.0 Urine RBC (Auto) 1.0 U Epithel Cells (Auto) 1.0 Urine Mucus Few Urine HCG, Qual Negative Critical care attestation.: If time is entered above; I have spent that time in minutes in the direct care of this critically ill patient, excluding procedure time. ED Disposition Clinical Impression: Bacterial vaginosis Disposition: HOME / SELF CARE / HOMELESS Is pt being admited?: No Does the pt Need Aspirin: No Condition: Stable Instructions: Bacterial Vaginosis, [id number], Bacterial Vaginosis (ED) Additional Instructions: Take medication as prescribed Return to ED for any worsening symptom Prescriptions: metroNIDAZOLE [Flagyl] 500 mg PO Q12HR 10 Days #20 tab Ondansetron (Nf) [Zofran TAB] 8 mg PO Q8HR PRN 3 Days #12 tablet PRN Reason: Nausea Referrals: [facility] [Provider Group] - 3-5 Days Forms: STI Treatment and Prevention
[2021-10-24 13:18] LABS: Bilirubin,Urine NEG (Negative); Blood,Urine NEG (Negative); Color,Urine Yellow (Yellow); Mucus,Urine FEW /HPF; Protein,Urine <15 mg/dL mg/dL (Negative); Urobilinogen,Urine < 2.0 mg/dL (<2.0); WBC,Urine < 1.0 /HPF (0.0-6.0)
[2021-10-24 13:33] LABS: HCG Qualitative,Urine Negative (Negative)
[2021-10-24 14:23] VITALS: BP 124/89
== END 2021-10-24 14:22 | disposition home or self-care (01) ==
LOC: ED 11:01
DX: N76.0 Acute vaginitis (principal); B96.89 Other specified bacterial agents as the cause of diseases classified elsewhere; F31.9 Bipolar disorder, unspecified; Z79.899 Other long term (current) drug therapy
CPT/HCPCS: 81001; 81025; 87210; 87591; 99283; 99284